=== PATIENT | female | born 1935 | race Caucasian/White ===

== ENCOUNTER → 2018-05-25 | Outpatient (CLI) | payer OTHER ==
[~2018-05-25] MED LIST: ASPIR 8181 MG PO; CIPRO500 MG PO; COLACE100 MG PO; COZAAR 50 MG TA50 M2 PO; FISH OIL 1,001000 M2 PO; FLAGYL500 M1 PO; FLONASE 0.05%50 MCG NASAL; LEVOTHYROXIN0.025 MG PO; MAGOX 400400 MG PO; METFORMIN HCL500 MG PO; NORCO 5-325 TA1 EACH PO; OMEPRAZOLE40 MG PO; PERCOCET PO; POTASSIUM99 M1 PO; PRAVACHOL40 MG PO; REGLAN 5 MG TAB5 MG PO; TRAMADOL 50 MG50 MG PO; VITAMIN D2000 UNIT PO
== END ==
LOC: MRI 11:55
DX: G31.9 Degenerative disease of nervous system, unspecified (principal); I67.82 Cerebral ischemia; G20 Parkinson's disease; R29.6 Repeated falls; R26.89 Other abnormalities of gait and mobility; Z85.9 Personal history of malignant neoplasm, unspecified

== ENCOUNTER 2018-09-27 14:37 | Inpatient (IN) | payer OTHER ==
[~2018-09-27] VITALS: Ht 152.4 cm; Wt 69.4 kg
--- NOTE | ~2018-09-27 | H ---
[facility] [place] [address] HISTORY AND PHYSICAL Name: SANDRA PACHECO Room #: 461-P ADM IN M.R.#: [id number] Admission: 09/27/18 ������������������ Attend Phys: Thad Reyes MD Discharge: ������������������ Date of : 36 Report #: [id number] THIS REPORT FOR: //name// CC: Thad Reyes DATE OF SERVICE: 09/27/2018 CHIEF COMPLAINT: Severe right-sided chest pain with atypical features, multiple risk factors for coronary artery disease. HISTORY OF PRESENT ILLNESS: She was awakened by right-sided chest pain at noon today. The pain was radiating down her right arm, waxing and waning and was worse with deep inspiration. She also reported shortness of breath due to her pain. She took some meir nieves, drank some water, laid down and went back to sleep and the pain woke her up again. After discussing it with her family members, she called the ambulance, which gave her 324 mg of aspirin and brought her to the [facility]. There was nausea and vomiting earlier in the morning associated with caffeinated tea and cola. Evaluation in the Emergency Room was negative, but with her age of 83 and multiple risk factors as well as the severity and persistence of her pain, admission was indicated. PAST MEDICAL HISTORY: Significant for fci type 2 diabetes, obesity, hyperlipidemia, hypertension, GERD along with a hiatal hernia and sinus surgery. She has had history of hypothyroidism, but currently does not need thyroid replacement. She has had kidney stones in the past that she passed. She has a full mouth extraction for bad teeth and now has full dentures. She has had sinus surgery and colon cancer removed in 2002 with hemicolectomy and hysterectomy in 1960 for uterine cancer. Tremors and RLS are possibly Parkinsons disease; neurologist prescribed 0.25mg ropinerole twice a day empericlly and it is very effective. SOCIAL HISTORY: She lives with her sister in her sister's home. They have lived together many years. Their mother lived with them until 2 years ago when she at the age of 89 of a lung cancer. CURRENT MEDICATIONS: Furosemide 40 mg daily on an as needed basis for swelling, omeprazole 40 mg for reflux, tramadol 50 mg on a rare as needed basis, pravastatin 80 mg for high cholesterol, fluticasone nasal spray on a rare p.r.n. basis. Stool softener once every morning, fish oil pills once every morning, metformin 500 mg once daily, magnesium oxide 250 mg at bedtime for leg cramps and potassium gluconate [id number], or an occasional 20 mEq prescription [address] [address] HISTORY AND PHYSICAL Name: PACHECOSANDRA Room #: 461-P [facility] IN M.R.#: [id number] Admission: 09/27/18 ������������������ Attend Phys: Thad Reyes MD Discharge: ������������������ Date of : 36 Report #: [id number] strength potassium for diffuse leg and arm cramps. Vitamin D 2000 units daily, losartan 100 mg daily (she has currently been increased to taking a full pill). Ropinirole 0.25 mg twice daily for restless legs and possible Parkinson's disease. This medication was prescribed by Dr. Sinclair. REVIEW OF SYSTEMS: Generally, she feels well. HEENT are negative. She has had some shortness of breath with flaring of the right arm and chest pain. She has hiatal hernia symptoms and reflux. She has had a tremor and leg and arm cramps that were improved by taking a low dose of ropinirole 0.25 mg twice daily prescribed by Dr. Sinclair of Neurology [facility] at [facility]. She has right chest wall pain. She has left upper abdominal wall pain. She does not have any symptoms. Her legs began swelling several days ago and responded incompletely to elevation. Her left leg is swollen much more than her right and she started taking her furosemide. The left lower calf and ankle are tender. A stool was passed recently with bright red blood, she was constipated and had to strain at stool and she does have a history of hemorrhoids. At times, her constipation is such that she needs to digitally assist her stool to pass. ALLERGIES: AMITRIPTYLINE CAUSES HIVES AND HOT FLASHES, CODEINE CAUSES SEVERE HALLUCINATIONS, PENICILLINS CAUSE HER TO PASS OUT AND SHE IS UNABLE TO BREATHE, SULFONAMIDE ANTIBIOTICS CAUSE HIVES. SOCIAL HISTORY ADDITION: She has stopped smoking cigarettes long time ago. She stopped using alcohol quite a while ago as well. PAST MEDICAL HISTORY: Type 2 diabetes, she has passed kidney stones. PHYSICAL EXAMINATION: GENERAL: Shows an 83-year-old female in mild discomfort at the time of my examination. HEENT: Unremarkable. The oropharynx is mildly dry. NECK: There is no adenopathy, thyromegaly or masses in the neck. There are no carotid bruits present. LUNGS: Clear. CARDIOVASCULAR: The heart tones are normal and regular. ABDOMEN: Obese and mildly diffusely tender centered in the left upper quadrant. Bowel sounds are normal. GENITOURINARY: Deferred. EXTREMITIES: The left lower leg has mild tenderness with +1 swelling around the ankle and midcalf regions. There is perhaps minimal redness, the family and the patient say the redness was present yesterday and the day before, but has resolved. There is no warmth present. There is a tender large popliteal Moreno's cyst present on the left. The right has minimal edema, no tenderness, no erythema and no popliteal cyst. NEUROLOGIC: Screening neurological examination is grossly normal. [facility] [address] [place] [address] HISTORY AND PHYSICAL Name: SANDRA PACHECO Cristo Room #: 461-P ADM IN .R.#: [id number] Admission: 09/27/18 ������������������ Attend Phys: Thad Reyes MD Discharge: ������������������ Date of : 36 Report #: [id number] DIAGNOSTIC DATA: In the Emergency Room, CT scan by pulmonary emboli protocol was negative and showed normal heart size. Numerous subpleural blebs were present low in the lower lung zavala, along with apical scarring. Atherosclerosis of the aorta was noted. A large hiatal hernia was present and was increased in size when compared with 01/18/2016. Multiple osteophytes were present at multiple levels of the thoracic spine. There was fluid in the esophagus, which may represent reflux or gastroparesis. Venous Doppler of the left leg showed normal venous function, no blood clots were present. LABORATORY DATA: Remarkable for an albumin of 2.7, fulfilling criteria for severe malnutrition, kidney function is normal with an EGFR of 60. Troponins are negative. NT-proBNP is normal at 129. Hemoglobin is higher than usual at 11.9, WBC is 9.0 without abnormalities in the differential. ASSESSMENT: 1. Right chest pain with some atypical features and some true angina features. 2. Multiple cardiac risk factors. 3. Painful swelling in the left lower leg without deep vein thrombosis. 4. Chronic pulmonary disease with some lower blebs. 5. A spiculated density in the posterior aspect of left upper lobe measuring 2.9 x 1.9 cm, was incompletely evaluated on 01/04/2016, and not specifically mentioned on the current CT pulmonary embolism protocol. 6. Hyperlipidemia. 7. Type 2 diabetes. 8. Hiatal hernia with gastroesophageal reflux disease and symptoms. 9. Right-sided chest wall pain. 10. Left-sided upper abdominal wall pain. 11. Constipation with bright red blood on the stool. 12. Diffuse cramps of the hands and legs that respond to magnesium, potassium and ropinirole. 13. Hand tremors that responded to ropinirole empirically and the formal full evaluation for Parkinson's disease was reserved for later, suggested by the neurologist, Dr. Sinclair and agreed to by the patient and her family. PLAN: The patient is an 83-year-old female with multiple high risk factors for coronary artery disease. Her presentation is atypical, but it is known that women have more atypical features in their presentation of angina or chest pain. For this reason, she is being admitted and being monitored with serial troponins. Cardiovascular and Medicine consultation will be obtained in the morning. There is an additional history of a colonoscopy that had a perforation as a [facility] [address] [place] [address] HISTORY AND PHYSICAL Name: SHAKIRA PACHECOBobby Lemons Room #: 461-P [facility] IN ..#: [id number] Admission: 09/27/18 ������������������ Attend Phys: Thad Reyes MD Discharge: ������������������ Date of : 36 Report #: [id number] complication, followed by laparoscopic partial colectomy and perforation repair by Dr. Deysi Correia several years ago. ��������������������������������������������� ���������������������������������������� By: ��������������������������������������������� 00 Thad Reyes MD /nt
[2018-09-27 14:40] VITALS: BP 146/76
[2018-09-27 15:15] LABS: ABSOLUTE NEUTROPHILS 5.2 thou/uL (1.4-8.2); BASOPHILS 0.7 % (0.0-2.0); EOSINOPHILS 1.8 % (0.0-3.0); HEMATOCRIT 36.8 % (37.0-47.0); HEMOGLOBIN 11.9 gm/dL (12.0-15.0); LYMPHOCYTES 32.6 % (24.0-44.0); MCH 26.6 pg (26.0-34.0); MCHC 32.5 g/dL (28.0-37.0); MCV 82.1 fL (80.0-100.0); MONOCYTES 6.8 % (1.0-8.0); PLATELET COUNT 272 thou/uL (150-400); POLYS 58.1 % (36.0-66.0); RBC 4.48 mil/uL (4.20-5.00); RDW 15.9 % (10.5-14.5)
[2018-09-27 15:17] LABS: ANION GAP 10 mmol/L (7-16); BUN 18 mg/dL (7-18); CALCIUM 9.4 mg/dL (8.5-10.1); CHLORIDE 105 mmol/L (98-107); CO2 26 mmol/L (21-32); CREATININE 0.9 mg/dL (0.6-1.0); GLUCOSE 127 mg/dL (74-106); POTASSIUM 3.7 mmol/L (3.5-5.1); SODIUM 141 mmol/L (136-145)
[2018-09-27 15:27] LABS: TROPONIN-I <0.06 ng/mL (<0.06)
[2018-09-27 17:35] VITALS: BP 153/69
[2018-09-27] MEDS ORDERED: LASIX 40 MG TAB40 M2 PO (17:45)
[2018-09-27 19:38] VITALS: BP 154/61
[2018-09-27 19:53] VITALS: BP 148/58
[2018-09-28 01:10] VITALS: BP 142/69
[2018-09-28 05:34] LABS: ALBUMIN 2.7 g/dL (3.4-5.0); CALCIUM 8.8 mg/dL (8.5-10.1); CREATININE 0.8 mg/dL (0.6-1.0); POTASSIUM 3.9 mmol/L (3.5-5.1); TOTAL BILIRUBIN 0.3 mg/dL (<0.1-1.0); TOTAL PROTEIN 5.7 g/dL (6.4-8.2)
[2018-09-28 07:05] VITALS: BP 104/43
--- NOTE | 2018-09-28 08:07 | NUR ---
1950 TO FLOOR PER CART FROM ER. ADMISSION PROCESS STARTED AND COMPLETED. SLEPT MOST OF SHIFT. DENIES COMPLAINTS OF PAIN AT PRESENT. ULTRAM GIVEN FOR RIGHT BREAST PAIN IN ARM PIT WITH NOTED RELIEF. NPO PAST MIDNIGHT FOR POSSIBLE AM TEST. SPOKE WITH DR CLEANING X2 FOR ADMIT ORDERS AND UPDATE. NO COMPLAINTS THIS AM. CONTINUE TO ASSES ALLIE.
--- NOTE | 2018-09-28 09:02 | EKG ---
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: DESTINY : 1935 Requested By: Ryan Nixon Order Number: [id number] MD: Julián Kraft Measurements Intervals [place] Rate: 73 P: 54 DC: 174 QRS: -15 QRSD: 87 T: 133 QT: 399 QTc: 440 Interpretive Statements Sinus rhythm Inferior infarct, old Nonspecific ST segment abnormality Compared to ECG 02/11/2016 10:01:27 Inferior Q waves are more prominent Electronically Signed On 09-28-2018 9:02:48 CDT by Julián Kraft [email or web address] ��������������������������������������������� <ELECTRONICALLY SIGNED> ���������������������������������������� By: Julián Kraft MD, [facility] ��������������������������������������������� 09/28/18 0902 [id number] Julián Kraft MD, [facility] /EPI
--- NOTE | 2018-09-28 09:47 | 2DMMODE ---
[facility] [address] [place] [address] 2 D/M-MODE ECHOCARDIOGRAM Name: JUNIORSANDRA J Room #: 461-P [facility] IN ..#: [id number] ������������� Admission: 09/27/18 ������������� Attend Phys: Thad Reyes, Discharge: ��� ������������� ��� Date of : 37 Date of Service: 09/28/18 0947 �� Report #: [id number] �������� ��������������������������������������������[id number] THIS REPORT FOR: //name// APPROVED REPORT Study performed: 09/28/2018 09:07:16 EXAM: Comprehensive 2D, Doppler, and color-flow Echocardiogram Patient Location: Echo lab Room #: 461 Status: routine BSA: 1.67 HR: 70 bpm BP: 142/69 mmHg Rhythm: NSR Other Information Study Quality: Good Indications Dyspnea Chest Pain Hx: HTN, HLP, DM. 2D Dimensions RVDd: 30.83 mm IVSd: 12.10 (7-11mm) LVOT Diam: 17.77 (18-24mm) LVDd: 40.08 mm PWd: 9.96 (7-11mm) LVDs: 24.74 (25-40mm) Aortic Root: 34.56 mm Volumes Left Atrial Volume (Systole) Single Plane 4CH: 36.79 mL Single Plane 2CH: 38.91 mL LA ESV Index: 24.00 mL/m2 Aortic Valve AoV Peak Benjamin.: 1.35 m/s AO Peak Gr.: 7.30 mmHg LVOT Max P.28 mmHg LVOT Max V: 1.03 m/s AUGUSTUS Vmax: 1.90 cm2 Mitral Valve E/A Ratio: 0.8 [facility] [address] [place] [address] 2 D/M-MODE ECHOCARDIOGRAM Name: PACHECOSANDRA Room #: 461-P [facility] IN [facility].#: [id number] ������������� Admission: 09/27/18 ������������� Attend Phys: Thad Reyes, Discharge: ��� ������������� ��� Date of : 37 Date of Service: 09/28/18 0947 �� Report #: [id number] �������� ��������������������������������������������[id number] MV Decel. Time: 215.53 ms MV E Max Benjamin.: 0.72 m/s MV A Benjamin.: 0.86 m/s MV PHT: 62.50 ms IVRT: 83.04 ms Pulmonary Valve PV Peak Benjamin.: 0.76 m/s PV Peak Gr.: 2.30 mmHg Pulmonary Vein P Vein S: 0.59 m/s P Vein A: 0.29 m/s P Vein D: 0.53 m/s P Vein A Dur.: 138.4 msec P Vein S/D Ratio: 1.11 Tricuspid Valve TR Peak Benjamin.: 2.42 m/s RAP Estimate: 5.00 mmHg TR Peak Gr.: 23.47 mmHg PA Pressure: 28.00 mmHg Left Ventricle The left ventricle is normal size. There is normal LV segmental wall motion. Mild septal hypertrophy is present. Left ventricular systolic function is normal. LVEF is 55-60%. Mild diastolic dysfunction is present (impaired relaxation pattern). Right Ventricle The right ventricle is normal size. The right ventricular systolic function is normal. Atria The left atrium size is normal. The right atrium size is normal. Aortic Valve The aortic valve is normal in structure. Trace aortic regurgitation. There is no aortic valvular stenosis. Mitral Valve The mitral valve is normal in structure. Mild mitral regurgitation. Tricuspid Valve The tricuspid valve is normal in structure. Mild tricuspid regurgitation. Estimated PAP is 28mmHg. Pulmonic Valve [facility] [address] [place] [address] 2 D/M-MODE ECHOCARDIOGRAM Name: SANDRA PACHECO Room #: 461-P [facility] IN ..#: [id number] ������������� Admission: 09/27/18 ������������� Attend Phys: Thad Reyes, Discharge: ��� ������������� ��� Date of : 37 Date of Service: 09/28/18 0947 �� Report #: [id number] �������� ��������������������������������������������[id number] The pulmonary valve is normal in structure. There is no pulmonic valvular regurgitation. Great Vessels The aortic root is normal in size. IVC is normal in size and collapses >50% with inspiration. Pericardium There is no pericardial effusion. <Conclusion> The left ventricle is normal size. Left ventricular systolic function is normal. Mild diastolic dysfunction is present (impaired relaxation pattern). The right ventricle is normal size. The left atrium size is normal. The aortic valve is normal in structure. Mild mitral regurgitation. Mild tricuspid regurgitation. Estimated PAP is 28mmHg. ��������������������������������������������� <ELECTRONICALLY SIGNED> ���������������������������������������� By: Arnaldo Ascencio MD ��������������������������������������������� 09/28/18946 6 6 Arnaldo Ascencio MD /INF
--- NOTE | 2018-09-28 12:15 | NUR ---
TOWARDS POC PT A/O X4, VSS, AFEBRILE, DENIES PAIN/ CHEST PAIN. NO NV. PT ON NM STRESS TEST AT THIS MOMENT. WILL CONTINUE TO MONITOR.
--- NOTE | 2018-09-28 13:10 | NUR ---
PT ADMITTED RELATED TO CHEST PAIN AND VOMITING. CM REVIEWED CHART AND SPOKE WITH CARE TEAM. CM MET WITH PT AND LUZ HOLLINGSWORTH AT BEDSIDE THIS DAY. PT IS A &O X4. CM ROLE INTRODUCED. PT INDICATED SHE LIVES IN A HOUSE WITH HER SISTER CATS AND SMALL DOGS WITH 3 STEPS TO ENTER AND 2 INSIDE. 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 PT INDICATED NO DME. PT HAD USED [facility] IN 2015 AND WOULD USE THEM AGAIN UPON DC IF RECOMMENDED. PT HAS STRESS TEST AND ECHO TODAY. PT INDICATED SHE PLANS TO RETURN HOME ONCE MEDICALLY STABLE.CM TO FOLLOW INDICATED WITH DC PLANNING.
[2018-09-28 15:27] VITALS: BP 107/73
[2018-09-28 19:25] VITALS: BP 128/55
[2018-09-28 20:53] VITALS: BP 110/78
[2018-09-29 03:17] VITALS: BP 133/69
--- NOTE | 2018-09-29 06:54 | NUR ---
PATIENT SLEPT PART OF THE SHIFT. NO CHEST PAIN REPORTED DURING THE SHIFT. BILATERAL LE EDEMA IS HAS IMPROVED PER ASSESSMENT AND PATIENENT. PATIENT APPEARED COMFORTABLE. CARDIAC CATH SCHEDULED FOR THIS PM. NO ORDERS RECEIVED AT THE MOMENT. PATIENT IS ALLOWED TO HAVE CLEAR BREAKFAST AND NPO THEREAFTER. PATIENT IS PROGRESSING TOWARDS DC GOALS.
[2018-09-29] MEDS ORDERED: REQUIP 0.25 M0.25 M1 PO (07:34)
[2018-09-29 07:47] VITALS: BP 108/76
[2018-09-29 15:06] VITALS: BP 111/61
[2018-09-29 20:57] VITALS: BP 119/55
--- NOTE | 2018-09-30 02:25 | NUR ---
PT SUPINE 4 FOR 4 HOURS AFTER CATH PT GIVEN TRAMADOL FOR PAIN PT WAS ABLE TO SLEEP MOST OF THE NIGHT NO ISSUES OVERNIGHT.
[2018-09-30 04:52] VITALS: BP 132/58
[2018-09-30 08:24] VITALS: BP 135/58
--- NOTE | 2018-09-30 11:47 | NUR ---
TOWARDS POC PT A/O X4, VSS, AFEBRILE, PAIN MANAGED BY MEDS, HEATING PAD IN ROOM. LATULOSE GIVEN FOR CONSTIPATION, FAMILY AT BEDSIDE. NO CONCERNS VOICED, WILL CONTINUE TO MONITOR.
--- NOTE | 2018-09-30 12:48 | NUR ---
ON-GOING ASSESSMENT: PT IS HAVING ISSUES WITH NAUSEA AND VOMITTING WELL As CONSTIPATION. CM WILL CONTINUE TO FOLLOW TO ASSIST NEEDED.
[2018-09-30] MEDS ORDERED: PROTONIX40 M1 PO (15:56)
[2018-09-30] MEDS ORDERED: ZETIA10 MG PO (15:56)
[2018-09-30] MEDS ORDERED: ASPIR 8181 MG PO (15:56)
[2018-09-30] MEDS ORDERED: ANTIVERT25 MG PO (16:05)
[2018-09-30] MEDS ORDERED: POTASSIUM20 PO (16:05)
[2018-09-30] MEDS ORDERED: ONDANSETRON ODT4 MG PO (16:05)
[2018-09-30 16:22] VITALS: BP 135/58
--- NOTE | 2018-10-05 09:56 | CATHLAB ---
[facility] [address] [place] [address] INVASIVE PROCEDURE REPORT Name: SANDRA PACHECO Room #: 461-P [facility] IN [facility]#: [id number] ������������� Admission: 09/27/18 ������������� Attend Phys: Thad Reyes, Discharge: ��� 09/30/18 ������������� ��� Date of : 37 Date of Service: 10/05/18 0955 �� Report #: [id number] �������� ��������������������������������������������[id number] THIS REPORT FOR: //name// APPROVED REPORT Study performed: 09/29/2018 16:53:41 Patient Details Patient Status: In-Patient Room #: The patient is a 83 year-old female Event Personnel Fredy Solis [employer], José Miguel Sutherland RN, Claudine Vásquez RTR, Clark Dee David Monitor Procedures Performed Left Heart Cath w/or w/o Coronaries [id number] [facility] supervision of conscious sedation Indication Chest pain Procedure Narrative The Right Groin^ was infiltrated with 1% Lidocaine subcutaneous anesthesia. A PINNACLE 4FR Sheath #[id number] sheath was inserted into the RFA^. Coronary angiography was performed using coronary diagnostic catheters. The right coronary system was accessed and visualized with a JR4 catheter. The left coronary system was accessed and visualized with a JL4 catheter. Left ventricular/Aortic Valve gradient assessed via catheter pullback. Hemostasis was obtained with manual pressure following sheath removal without any complications. The patient tolerated the procedure well and there were no complications associated with the procedure. There was no hematoma. Intraoperative Conscious Sedation Sedation start time: 17.19 Case end Time: 17.47 Versed 2 mg Fluoro Time: 1.30 minutes Dose: DAP 2081.90 cGycm2 297 mGy Contrast Type and Amount: Omnipaque 50 ml Coronary Angiography [facility] [address] [place] [address] INVASIVE PROCEDURE REPORT Name: PACHECOSANDRA Room #: 461-P [facility].#: [id number] ������������� Admission: 09/27/18 ������������� Attend Phys: Thad Reyes, Discharge: ��� 09/30/18 ������������� ��� Date of : 37 Date of Service: 10/05/18 0955 �� Report #: [id number] �������� ��������������������������������������������[id number] The patient's coronary anatomy is right dominant. Diagnostic Cath Left Main normal origin and small to moderate caliber vessels giving rise to LAD and LCX vessel free of high grade disease. LAD small to moderate caliber type I vessel with a small 30% proximal eccentric lesion. it then continues in av sulcus giving rise to septal and diagonal branches. free of high grade disease. Diagonal 1 small caliber with proximal 30% lesion otherwise free of significant disease Circumflex small caliber nondominant vessel coarsing posteriorly giving rise to several smaller caliber marginal branches all free of high grade disease Right Coronary moderate to large caliber vessel coarsing posteriorly free of high grade disease. gives rise to PDA then terminanates as a moderate caliber PLVB without high grade lesions R PDA moderate caliber vessel free of significant lesions. Ramus small insignificant caliber vessel with mild ostial lesion Left Ventriculography Left Ventriculography was not performed. Hemodynamics The aortic pressure is 134/64 mmHg with a mean of 90 mmHg. The left ventricular pressure is 141/12 mmHg with a mean of mmHg. The left ventricular end diastolic pressure is 22 mmHg. There was no gradient across the aortic valve upon pullback. Pullback from the left ventricle to the aorta revealed no gradient across the aortic valve. Conclusion 1. CAD MILD LUMINAL IRREGULARITIES 2. NORMAL HEMODYNAMICS WITH PRESERVED LVEDP Recommendations Cardiac Risk Reduction Program Medical Therapy ��������������������������������������������� <ELECTRONICALLY SIGNED> ���������������������������������������� By: Fredy Solis MD ��������������������������������������������� 10/05/18954 4 4 Fredy Solis MD /INF
[2018-10-06] MEDS ORDERED: ASPIR 8181 MG PO (13:56)
[2018-10-06] MEDS ORDERED: ZETIA10 MG PO (13:57)
[2018-10-06] MEDS ORDERED: SYNTHROID25 MC1 PO (13:58)
[2018-10-06] MEDS ORDERED: LOSARTAN POTAS100 MG PO (13:59)
[2018-10-06] MEDS ORDERED: MAGNESIUM OXID250 MG PO (14:00)
[2018-10-06] MEDS ORDERED: PRAVACHOL80 MG PO (14:01)
== END 2018-09-30 16:45 | disposition home or self-care (01) | DRG 391 ==
LOC: ER 14:37 → EROBS 17:34 → 4W 17:34 → ENTRNSPT 09-30 16:35 → 4W 09-30 16:45
PROVIDERS: Emergency Medicine; ADMIT Internal Medicine
DX: K21.9 Gastro-esophageal reflux disease without esophagitis (principal); E43 Unspecified severe protein-calorie malnutrition; I25.10 Atherosclerotic heart disease of native coronary artery without angina pectoris; I80.01 Phlebitis and thrombophlebitis of superficial vessels of right lower extremity; I10 Essential (primary) hypertension; E78.00 Pure hypercholesterolemia, unspecified; E03.9 Hypothyroidism, unspecified; E11.9 Type 2 diabetes mellitus without complications; M71.22 Synovial cyst of popliteal space [Baker], left knee; E66.9 Obesity, unspecified; E78.5 Hyperlipidemia, unspecified; K44.9 Diaphragmatic hernia without obstruction or gangrene; K59.00 Constipation, unspecified; Z66 Do not resuscitate; Z96.611 Presence of right artificial shoulder joint; Z90.710 Acquired absence of both cervix and uterus; Z85.42 Personal history of malignant neoplasm of other parts of uterus; Z98.42 Cataract extraction status, left eye; Z98.41 Cataract extraction status, right eye; Z88.6 Allergy status to analgesic agent; Z88.0 Allergy status to penicillin; Z88.2 Allergy status to sulfonamides; Z88.8 Allergy status to other drugs, medicaments and biological substances; Z87.891 Personal history of nicotine dependence; Z68.29 Body mass index [BMI] 29.0-29.9, adult; Z87.442 Personal history of urinary calculi
CPT/HCPCS: 10045

== ENCOUNTER → 2018-10-07 | Outpatient (CLI) | payer OTHER ==
[~2018-10-07] VITALS: Ht 157.5 cm; Wt 69.9 kg
[~2018-10-07] MED LIST changes: +ANTIVERT25 MG PO; +LASIX 40 MG TAB40 M2 PO; +LOSARTAN POTAS100 MG PO; +MAGNESIUM OXID250 MG PO; +ONDANSETRON ODT4 MG PO; +POTASSIUM20 PO; +PRAVACHOL80 MG PO; +PROTONIX40 M1 PO; +REQUIP 0.25 M0.25 M1 PO; +SYNTHROID25 MC1 PO; +ZETIA10 MG PO
--- NOTE | 2018-10-09 13:04 | P ---
[facility] [place] [address] PROCEDURE REPORT Name: SANDRA PACHECO Room #: REG [facility]#: [id number] Admission: 10/07/18 ������������������ Attend Phys: Eddie Sheridan MD Discharge: ������������������ Date of : 36 Report #: [id number] THIS REPORT FOR: //name// CC: Eddie Reyes MD DATE OF SERVICE: 10/07/2018 OUTPATIENT UPPER ENDOSCOPY REPORT: BRIEF HISTORY: The patient is an 83-year-old woman with recurrent solid food dysphagia. She also has a history of a large hiatus hernia and reflux disease. She also recently had atypical chest pain, was switched from omeprazole to pantoprazole 40 mg twice daily. PREOPERATIVE DIAGNOSES: Atypical chest pain and dysphagia and reflux disease. POSTOPERATIVE DIAGNOSES: 1. Distal esophagitis. 2. Moderately large 5-6 cm hiatus hernia. 3. Polyp, cardia of stomach. 4. Diffuse gastritis. 5. Mild Schatzki ring. MEDICATIONS: Deep sedation with propofol per anesthesia. SPECIMEN: Biopsy of gastritis. ESTIMATED BLOOD LOSS: 3 mL. PROCEDURE: EGD with biopsy and Pressley dilation. FINDINGS: Prior to propofol sedation, procedure of upper endoscopy and dilation was reviewed with the patient as well as potential risks and its complications. She indicates she understands and desires to proceed. DESCRIPTION OF PROCEDURE: With the patient in left lateral decubitus position, the ClientShowi video endoscope was inserted in the cervical esophagus under direct vision without difficulty. Examination of this organ through its entire length revealed normal mucosa in the proximal esophagus. Examination of the distal esophagus revealed it to be tortuous likely from her moderately large hiatus hernia. There were erosions in the distal esophagus consistent with reflux esophagitis to moderate degree. At the squamocolumnar junction, intermittently a Schatzki ring was seen. It had a smooth benign appearance. The scope was advanced into the hernia and it was inspected. The mucosa and hernia was [facility] [address] [place] [address] PROCEDURE REPORT Name: JUNIORSANDRA Room #: [facility].#: [id number] Admission: 10/07/18 ������������������ Attend Phys: Eddie Sheridan MD Discharge: ������������������ Date of : 36 Report #: [id number] intact. The hernia measured 5-6 cm in greatest length. I was able to retroflex the scope in the hernia and just at the level of the cardia just distal to the gastroesophageal junction; a 8-9 mm red, somewhat friable polypoid lesion was seen. It had smooth and benign appearance. It is not clear whether this is neoplasm, inflammatory polyp or it could even be thickened folds inflamed. Multiple biopsies were obtained. The scope was advanced into the distal stomach, was examined on end view as well as retroflexed views. There was a pattern of diffuse erythematous gastritis. No ulcers or erosions were seen. The pylorus was unremarkable. Duodenal bulb was unremarkable. Duodenal sweep was unremarkable. At that point, the scope was slowly withdrawn and careful circumferential views confirmed the above findings. The patient tolerated the procedure well. Subsequently, she was dilated with passage of 52-Egyptian Pressley dilator. There was no resistance. CONDITION OF THE PATIENT UPON DISCHARGE: Following procedure, the patient drowsy, aroused, conversant and will be discharged home when fully ambulatory. INSTRUCTIONS TO THE PATIENT AND FAMILY AT THE TIME OF DISCHARGE: I would agree with use of twice daily pantoprazole, especially since there is evidence of esophagitis and she had recent bout of chest pain, which may be related to reflux disease. I would be happy to see her in followup in the office in about 8-12 weeks to see her response. If she continues with symptoms in spite of medical therapy, repair of the hiatus hernia may be a consideration. She did have a Schatzki ring as noted above. She was dilated once again. She is to return for dilation based on symptoms of recurrent dysphagia. In addition, suggest antireflux measures including eating smaller meals, avoiding eating meals when lying down and elevation of head of her bed. She will follow up with Dr. Reyes and we will follow up on biopsy as well. ��������������������������������������������� <ELECTRONICALLY SIGNED> ���������������������������������������� By: Eddie Sheridan MD ��������������������������������������������� 10/09/18 1304 1056 0304 Eddie Sheridan MD /nt
--- NOTE | 2018-10-11 13:12 | PATH ---
[facility] [place] [address] PATHOLOGY RPT PROCEDURE Name: SANDRA JENNINGS Cristo Room #: REG [facility] Miranda.#: [id number] ������������������ Admission: 10/07/18 ������������������ Date of : 36 Discharge: Report #: [id number] Path Case #: [id number] [facility] Accession Number: [id number] . 01 Material submitted: . PART A: BX GASTRITIS R/O H PYLORI PART B: BX POLYP AT CARDIOSTOMACH . 01 Clinical history: . Pre-OP DX: GERD Post-OP DX: Gastritis, Schatzki's ring, large hiatal hernia, polyp at cardio stomach . 02 Diagnosis: A. Gastric mucosa, gastritis rule out H. pylori, endoscopic biopsy: - Mild reactive gastropathy. - Negative for intestinal metaplasia or atrophy. - Negative for Helicobacter pylori (properly controlled immunohistochemical stain performed). . B. Polyp, at cardiostomach, endoscopic biopsy: - Compatible with a hyperplastic/inflammatory polyp. - Negative for dysplasia or malignancy. (IUV/db; 10/08/2018) LBQ/10/08/2018 . 02 Electronically signed: . Lisa Agustin MD, Pathologist NPI- [id number] . 01 Gross description: . A. Received in formalin labeled "Sandra Jennings BX gastritis, rule out H. pylori," are 4 segments of jansen soft tissue measuring 0.9 x 0.8 x 0.2 cm in aggregate dimensions and ranging from 0.2 to 0.6 cm in maximum dimension. The specimen is submitted entirely in cassette A1. . B. Received in formalin labeled "Sandra Jennings BX polyp at cardio stomach," are 4 segments of jansen soft tissue measuring 1.2 x 0.6 x 0.2 cm in aggregate dimensions and ranging from 0.4 to 0.5 cm in maximum dimension. The specimen is submitted entirely in cassette B1. (TSD; 10/07/2018) TOB/TOB . 02 Pathologist provided ICD-10: K31.9, K31.7 . 02 [place] [address] PATHOLOGY RPT PROCEDURE Name: SANDRA JENNINGS Room #: REG [facility]#: [id number] ������������������ Admission: 10/07/18 ������������������ Date of : 36 Discharge: Report #: [id number] Path Case #: [id number] Specimen Comment: A courtesy copy of this report has been sent to Specimen Comment: [phone], . Specimen Comment: Report sent to / DR CLEANING Performed at: [address], [place] [id number] MD Supa Ibrahim MD Phone: [phone] Performed at: [address] [id number] MD Lisa Agustin MD Phone: [phone]
== END | disposition home or self-care (01) ==
LOC: GI 08:31
DX: K21.9 Gastro-esophageal reflux disease without esophagitis (principal); K44.9 Diaphragmatic hernia without obstruction or gangrene; Z79.899 Other long term (current) drug therapy; K31.7 Polyp of stomach and duodenum; K22.2 Esophageal obstruction; K29.70 Gastritis, unspecified, without bleeding; K56.2 Volvulus; E78.00 Pure hypercholesterolemia, unspecified; I10 Essential (primary) hypertension; E11.9 Type 2 diabetes mellitus without complications; E03.9 Hypothyroidism, unspecified; Z98.890 Other specified postprocedural states
CPT/HCPCS: 62110; 62900

== ENCOUNTER → 2018-10-14 | Outpatient (CLI) | payer OTHER | LOC: CAT 12:26 | DX: K80.20 Calculus of gallbladder without cholecystitis without obstruction (principal); K44.9 Diaphragmatic hernia without obstruction or gangrene; G89.29 Other chronic pain; K59.00 Constipation, unspecified ==

== ENCOUNTER → 2018-11-29 | Outpatient (CLI) | payer OTHER ==
[~2018-11-29] VITALS: Ht 154.9 cm; Wt 68.0 kg
[~2018-11-29] MED LIST changes: +ASTEPRO205.5 MCG/ NASAL; +KLOR-CON 1010 MEQ PO
--- NOTE | 2018-11-30 13:59 | P ---
[facility] [place] [address] PROCEDURE REPORT Name: SANDRA PACHECO Room #: REG [facility]#: [id number] Admission: 11/29/18 ������������������ Attend Phys: Eddie Sheridan MD Discharge: ������������������ Date of : 36 Report #: [id number] THIS REPORT FOR: //name// CC: Eddie Reyes MD DATE OF SERVICE: 11/29/2018 BRIEF HISTORY: The patient is an 83-year-old woman with history of rectal cancer treated in [place] 15-20 years ago. Those records are not available. She also has a history of multiple colon polyps and a perforation at the time of colonoscopy in 2014, which was surgically repaired. She presents due to increasing difficulties with constipation. PREOPERATIVE DIAGNOSIS: High risk screening colonoscopy. POSTOPERATIVE DIAGNOSES: 1. Multiple colon polyps. 2. Small internal hemorrhoids. MEDICATIONS: Deep sedation with propofol per Anesthesia. SPECIMENS: 1. Polyp from cecum. 2. Polyp, ascending colon. 3. Polyp, hepatic flexure. 4. Polyp at 60 cm. ESTIMATED BLOOD LOSS: 3 mL. PROCEDURE: Colonoscopy to cecum and terminal ileum with snare polypectomy. DESCRIPTION OF PROCEDURE: With the patient in left lateral decubitus position, digital examination was completed, which revealed no abnormalities. Subsequently, the Olympus video colonoscope was introduced in the rectum, advanced under direct vision to the cecum. Done with minimal difficulty. The cecum was identified by the ileocecal valve and appendiceal orifice. I was able to visualize the distal segment of the terminal ileum and the villous pattern was seen. At that point, scope was slowly withdrawn and careful circumferential views were obtained. Upon slow withdrawal of the scope, the prep was good. The mucosa was within normal limits, normal vascular pattern, normal light reflex. As we withdrew the scope, she was noted to have about a 4 mm sessile polyp in the cecum, removed by cold snare polypectomy. In the proximal ascending colon, an oblong 6-7 mm sessile polyp was seen and removed by cold snare polypectomy and recovered. At the hepatic flexure, a 4-5 mm sessile polyp was seen, removed [address] [address] PROCEDURE REPORT Name: ASNDRA PACHECO TERESA Room #: REG [facility] Ruth.#: [id number] Admission: 11/29/18 ������������������ Attend Phys: Eddie Sheridan MD Discharge: ������������������ Date of : 36 Report #: [id number] by cold snare polypectomy. The scope was further withdrawn and no additional abnormalities were noted until about 60 cm of the descending colon another 4 mm polyp was seen and removed by cold snare polypectomy and recovered. Upon further withdrawal of the scope, no additional lesions were seen. The rectosigmoid anastomosis was identified. It was noted to be unremarkable. In view of her worsening constipation, no strictures were seen. Examination of the rectum revealed normal mucosa. Upon retroflexion, small hemorrhoids were seen. Scope was withdrawn. The patient tolerated the procedure well. CONDITION OF THE PATIENT UPON DISCHARGE: Following the procedure, the patient drowsy, aroused, conversant and will be discharged to home when fully ambulatory. INSTRUCTIONS TO THE PATIENT AND FAMILY AT THE TIME OF DISCHARGE: We will follow up on the path of the polyps. In view of her history, I would suggest return in 3 years for a colonoscopy as long as her health is good. With regard to her constipation, she has been using a stool softener. I would suggest high fiber diet. Also, she may use MiraLax once or twice daily as needed for management of her constipation. If she does not have good control, she can return to the office for followup recommendations and possibly including the addition of Linzess. She will return to the care of Dr. Reyes, return to see me as needed. Last total colonoscopy was about 10 years ago. Withdrawal time from the cecum was 13 minutes 13 seconds. ��������������������������������������������� <ELECTRONICALLY SIGNED> ���������������������������������������� By: Eddie Sheridan MD ��������������������������������������������� 11/30/18 1359 0934 1226 Eddie Sheridan MD /nt
--- NOTE | 2018-11-30 17:06 | PATH ---
[facility] [place] [address] [place] [address] PATHOLOGY RPT PROCEDURE Name: SANDRA JENNINGS Room #: REG [facility] M.R.#: [id number] ������������������ Admission: 11/29/18 ������������������ Date of : 36 Discharge: Report #: [id number] Path Case #: [id number] [facility] Accession Number: [id number] . 01 Material submitted: . PART A: cecum - POLYP AT CECUM PART B: colon - POLYP AT PROXIMAL ASCENDING COLON. Modifiers: proximal, ascending PART C: hepatic flexure - POLYP AT HEPATIC FLEXURE PART D: colon - POLYP AT 60 CM. Modifiers: 60 CM . 01 Clinical history: . Preop DX: Constipation, hx colon cancer Postop DX: Colon polyps . 02 Diagnosis: A. Polyp, at cecum, endoscopic biopsy: - Compatible with an inflammatory polyp associated with hyperplastic changes. - Negative for dysplasia. . B. Polyp, at proximal ascending colon, endoscopic biopsy: - Multiple fragments of a tubular adenoma. - Negative for high-grade dysplasia. . C. Polyp, at hepatic flexure, endoscopic biopsy: - Tubular adenoma. - Negative for high-grade dysplasia. . D. Polyp, at 60 cm, endoscopic biopsy: - Tubular adenoma. - Negative for high-grade dysplasia. (IUV:colleen; 11/30/2018) QMS/11/30/2018 . 02 Electronically signed: . Lisa Agustin MD, Pathologist NPI- [id number] . 01 Gross description: . A. Received in formalin labeled "Sandra Jennings, polyp at cecum," is a segment of yellow-jansen soft tissue measuring 0.9 x 0.5 x 0.3 cm in greatest dimensions. The surgical margin is inked, and the specimen is bisected and submitted entirely in cassette A1. . B. Received in formalin labeled "Sandra Jennings, polyp at proximal ascending colon," is a segment of yellow-jansen soft tissue measuring 0.[address] [address] PATHOLOGY RPT PROCEDURE Name: SANDRA JENNINGS [facility] [id number] ������������������ Admission: 11/29/18 ������������������ Date of : 36 Discharge: Report #: [id number] Path Case #: [id number] 0.5 x 0.3 cm in greatest dimensions. The surgical margin is inked, and the specimen is bisected and submitted entirely in cassette B1. . C. Received in formalin labeled "Evelina Jenningsa, polyp at hepatic flexure," are two segments of yellow-jansen soft tissue measuring 0.4 x 0.3 x 0.2 cm each in greatest dimensions. The specimen is submitted entirely in cassette C1. . D. Received in formalin labeled "Dick Sandra, polyp at 60 cm," is a segment of red-jansen soft tissue measuring 0.8 x 0.3 x 0.2 cm in greatest dimensions. The specimen is submitted entirely in cassette D1. ([facility]; 11/29/2018) XDC/XDC . 02 Pathologist provided ICD-10: K63.5, D12.2, D12.3, D12.6 . 02 CPT . 915170, 090672, 332612, 341916 Specimen Comment: A courtesy copy of this report has been sent to Specimen Comment: [phone], . Specimen Comment: Report sent to / DR CLEANING Performed at: [address], [place] [id number] MD Supa Ibrahim MD Phone: [phone] Performed at: [address] [id number] MD Lisa Agustin MD Phone: [phone]
== END | disposition home or self-care (01) ==
LOC: GI 07:32
DX: D12.3 Benign neoplasm of transverse colon (principal); D12.2 Benign neoplasm of ascending colon; K63.5 Polyp of colon; D12.4 Benign neoplasm of descending colon; K64.8 Other hemorrhoids; I10 Essential (primary) hypertension; I25.10 Atherosclerotic heart disease of native coronary artery without angina pectoris; E78.00 Pure hypercholesterolemia, unspecified; E11.9 Type 2 diabetes mellitus without complications; K21.9 Gastro-esophageal reflux disease without esophagitis; E03.9 Hypothyroidism, unspecified; Z87.891 Personal history of nicotine dependence; Z87.442 Personal history of urinary calculi; Z85.42 Personal history of malignant neoplasm of other parts of uterus; Z90.710 Acquired absence of both cervix and uterus; Z86.010 Personal history of colon polyps; Z85.038 Personal history of other malignant neoplasm of large intestine; Z98.41 Cataract extraction status, right eye; Z98.42 Cataract extraction status, left eye; Z98.890 Other specified postprocedural states; Z79.899 Other long term (current) drug therapy; Z88.2 Allergy status to sulfonamides; Z88.0 Allergy status to penicillin; Z88.6 Allergy status to analgesic agent; Z88.8 Allergy status to other drugs, medicaments and biological substances; Z79.82 Long term (current) use of aspirin
CPT/HCPCS: 62110; 62900

== ENCOUNTER → 2019-02-22 | Outpatient (CLI) | payer OTHER | LOC: RAD 10:51 | DX: M18.12 Unilateral primary osteoarthritis of first carpometacarpal joint, left hand (principal); M19.042 Primary osteoarthritis, left hand; W19.XXXA Unspecified fall, initial encounter; Y93.89 Activity, other specified; Y92.89 Other specified places as the place of occurrence of the external cause; Y99.8 Other external cause status ==

== ENCOUNTER → 2019-10-04 | Outpatient (CLI) | payer OTHER | LOC: RAD 11:35 | DX: Z12.31 Encounter for screening mammogram for malignant neoplasm of breast (principal) ==

== ENCOUNTER 2020-03-07 10:05 | Emergency (ER) | payer OTHER ==
[~2020-03-07] VITALS: Ht 154.9 cm; Wt 67.1 kg
[2020-03-07 10:46] LABS: ABSOLUTE NEUTROPHILS 4.5 thou/uL (1.4-8.2); BASOPHILS 0.6 % (0.0-2.0); HEMATOCRIT 37.6 % (37.0-47.0); HEMOGLOBIN 12.4 gm/dL (12.0-15.0); LYMPHOCYTES 19.2 % (24.0-44.0); MCH 29.8 pg (26.0-34.0); MCHC 32.9 g/dL (28.0-37.0); MCV 90.8 fL (80.0-100.0); MONOCYTES 11.7 % (1.0-8.0); PLATELET COUNT 223 thou/uL (150-400); POLYS 62.5 % (36.0-66.0); RBC 4.14 mil/uL (4.20-5.00); WBC 7.2 thou/uL (4.0-11.0)
[2020-03-07 10:51] LABS: URINE BILIRUBIN NEGATIVE (Negative); URINE BLOOD NEGATIVE (Negative); URINE CLARITY CLEAR; URINE COLOR YELLOW; URINE GLUCOSE-RANDOM* NEGATIVE (Negative); URINE KETONES NEGATIVE (Negative); URINE LEUKOCYTES-REFLEX TRACE (Negative); URINE NITRITE-REFLEX NEGATIVE (Negative); URINE PROTEIN (DIPSTICK) NEGATIVE (Negative); URINE UROBILINOGEN 0.2 E.U./dl (0.2-1.0)
[2020-03-07 11:03] LABS: ANION GAP 8 mmol/L (7-16); BUN 33 mg/dL (7-18); CALCIUM 9.5 mg/dL (8.5-10.1); CHLORIDE 104 mmol/L (98-107); CO2 28 mmol/L (21-32); CREATININE 1.2 mg/dL (0.6-1.0); GLUCOSE 112 mg/dL (74-106); POTASSIUM 3.8 mmol/L (3.5-5.1); SODIUM 140 mmol/L (136-145)
[2020-03-07 11:09] LABS: MAGNESIUM 2.1 mg/dL (1.8-2.4); TROPONIN-I <0.06 ng/mL (<0.06)
[2020-03-07 15:27] VITALS: BP 110/52
--- NOTE | 2020-03-08 09:07 | EKG ---
[facility] [place] [address] [address] ELECTROCARDIOGRAM REPORT Name: SANDRA PACHECO [facility] [id number] Admission: 03/07/20 Attend Phys: Discharge: 03/07/20 Date of : 36 Report #: [id number] THIS REPORT FOR: cc: Thad Reyes MD, Stanley P. MD Couchonnal, Luis F. MD ~ THIS REPORT FOR: //name// [facility] ED Test Date: 2020-03-07 Test Time: 10:25:19 Pat Name: SANDRA PACHECO Department: Room: Gender: Day Care Supervisor: JULIO : 1935 Requested By: Angel Lozada Order Number: [id number] : Kip Gimenez Measurements Intervals [place] Rate: 72 P: 58 ME: 186 QRS: -2 QRSD: 91 T: 52 QT: 407 QTc: 446 Interpretive Statements Sinus rhythm Compared to ECG 09/27/2018 14:42:21 Myocardial infarct finding no longer present ST (T wave) deviation no longer present Electronically Signed On 03-08-2020 9:07:30 CDT by Kip Gimenez [email or web address] <ELECTRONICALLY SIGNED> By: Kip Gimenez MD 03/08/20 0907 1025 1025 Kip Gimenez MD /EPI
--- NOTE | 2020-03-08 09:09 | EKG ---
[facility] [place] [address] [place] [address] ELECTROCARDIOGRAM REPORT Name: SANDRA PACHECO [facility] [id number] Admission: 03/07/20 Attend Phys: Discharge: 03/07/20 Date of : 36 Report #: [id number] THIS REPORT FOR: cc: Thad Reyes MD, Stanley P. MD Couchonnal, Luis F. MD ~ THIS REPORT FOR: //name// [facility] ED Test Date: 2020-03-07 Test Time: 12:39:15 Pat Name: SANDRA PACHECO Department: Room: Gender: Private Inquiry Agent: [facility] : 1935 Requested By: Angel Lozada Order Number: [id number] MD: Kip Gimenez Measurements Intervals [place] Rate: 65 P: 51 WI: 189 QRS: -8 QRSD: 87 T: 39 QT: 427 QTc: 444 Interpretive Statements Sinus rhythm Compared to ECG 03/07/2020 10:25:19 No significant changes Electronically Signed On 03-08-2020 9:08:50 CDT by Kip Gimenez [email or web address] <ELECTRONICALLY SIGNED> By: Kip Gimenez MD 03/08/20 0908 1239 1239 Kip Gimenez MD /EPI
== END 2020-03-07 15:28 | disposition home or self-care (01) ==
LOC: ER 10:05
PROVIDERS: Emergency Medicine
DX: M54.6 Pain in thoracic spine (principal); R11.0 Nausea; M25.511 Pain in right shoulder; M25.512 Pain in left shoulder; I10 Essential (primary) hypertension; E78.5 Hyperlipidemia, unspecified; E03.9 Hypothyroidism, unspecified; K21.9 Gastro-esophageal reflux disease without esophagitis; Z79.82 Long term (current) use of aspirin; Z79.899 Other long term (current) drug therapy; Z88.0 Allergy status to penicillin; Z88.2 Allergy status to sulfonamides; Z88.5 Allergy status to narcotic agent; Z88.8 Allergy status to other drugs, medicaments and biological substances; Z87.891 Personal history of nicotine dependence

== ENCOUNTER → 2021-03-13 | Outpatient (CLI) | payer OTHER | LOC: SJCVCIMAG 09:04 | PROVIDERS: ATTEND Nuclear Medicine Nuclear Cardiology | DX: I73.9 Peripheral vascular disease, unspecified (principal); M79.605 Pain in left leg; M79.604 Pain in right leg; I87.8 Other specified disorders of veins ==

== ENCOUNTER 2021-07-05 15:28 | Inpatient (IN) | payer OTHER ==
[~2021-07-05] VITALS: Ht 152.4 cm; Wt 68.0 kg
[2021-07-05 15:55] VITALS: BP 79/40
[2021-07-05 17:30] LABS: ABSOLUTE NEUTROPHILS 2.5 thou/uL (1.4-8.2); BASOPHILS 0.9 % (0.0-2.0); EOSINOPHILS 0.1 % (0.0-3.0); HEMATOCRIT 37.6 % (37.0-47.0); HEMOGLOBIN 11.9 gm/dL (12.0-15.0); LYMPHOCYTES 21.8 % (24.0-44.0); MCH 28.4 pg (26.0-34.0); MCHC 31.8 g/dL (28.0-37.0); MCV 89.5 fL (80.0-100.0); MONOCYTES 10.9 % (1.0-8.0); PLATELET COUNT 175 thou/uL (150-400); POLYS 66.3 % (36.0-66.0); RDW 16.1 % (10.5-14.5); WBC 3.7 thou/uL (4.0-11.0)
[2021-07-05 17:38] LABS: CREATININE 1.1 mg/dL (0.6-1.0); POTASSIUM 4.9 mmol/L (3.5-5.1)
[2021-07-05 17:53] LABS: TOTAL BILIRUBIN 0.3 mg/dL (0.2-1.0); TOTAL PROTEIN 6.7 g/dL (6.4-8.2)
[2021-07-05 19:29] VITALS: BP 92/53
[2021-07-05 19:46] VITALS: BP 137/54
[2021-07-05 23:59] VITALS: BP 136/51
--- NOTE | 2021-07-06 00:07 | NUR ---
ADMIT PT ADMITTED TO ROOM 351 FROM ED WITH COVID, N/V/D. A/O X4 UP WITH SBA TO BSC. ADMISSION QUESTIONAIRE AND ASSESSMENT COMPLETED. PT ORIENTED TO ROOM CALL LIGHT SYSTEM AND POC. R/V UNDERSTANDING. TELEMETRY IN PLACE READING SR WITH RATES IN THE 70'S. LUNGS DIMINISHED AND PT ON ROOM AIR. REMDESIVIR INFUSING ORDERED IN TO LAC. CONTINUE POC.
--- NOTE | 2021-07-06 00:22 | NUR ---
TOOK OVER CARE. PT RESTING IN BED. LUNGS DIMINISHED. DUSKY SKIN TONE. IVF INTACT. PT CALLS FOR ASSIST. BED ALARM ON. PROVIDER CONTACTED RE NAUSEA AND EMESIS AFTER PT RECEIVED VIT C IN ED. NOTED PT HAS ALLERGY TO CITRUS DERIVITIVES AND PROVIDER NOTIFIED.
[2021-07-06 05:52] VITALS: BP 141/62
[2021-07-06 05:58] LABS: ALBUMIN 2.6 g/dL (3.4-5.0); CALCIUM 8.3 mg/dL (8.5-10.1); CREATININE 0.9 mg/dL (0.6-1.0); POTASSIUM 4.1 mmol/L (3.5-5.1); TOTAL BILIRUBIN 0.1 mg/dL (0.2-1.0); TOTAL PROTEIN 6.1 g/dL (6.4-8.2)
--- NOTE | 2021-07-06 06:18 | NUR ---
PT REPORTED IV BURNING AND ARM TENDER. SITE NOT RED OR SWOLLEN. IVF STOPPED. PT REPORTED BURNING WENT AWAY BUT ARM TENDER. ATTEMPT TO RESTART IV NOT SUCCESSFUL. WILL HAVE DAY SHIFT ATTEMPT RESTART. PTS TEMP ELEVATED, PRN PROVIDED.
[2021-07-06 07:23] VITALS: BP 108/43
[2021-07-06 11:25] VITALS: BP 106/42
[2021-07-06 15:24] VITALS: BP 132/57
--- NOTE | 2021-07-06 16:39 | NUR ---
RN ASSUMED PT'S CARE AT 0700AM, PT IS A&OX4, PT IS ON ROOM AIR , PT'S O2SAT AND VS ARE STABLE, PT IS CONTINUING IV ABX AND TREAT COVID MEDICATIONS, PT'S WEAKNESS AND N/V HAVE IMPROVED, PT GETS UP TO BSC WITH ASSIST, PT DENIES PAIN AND SOB BY THIS TIME.
[2021-07-06 19:12] VITALS: BP 133/53
--- NOTE | 2021-07-06 22:14 | NUR ---
PT WATCHING TV IN BED. PT REPORTED CONSTIPATION AND FEELING LIKE BM PUSHING ON HER BOOBS. PT STATED AT HOME SHE USUALLY WALKS AROUND HER AREA WHICH HELPS WITH RELIEF. PT STATED SHE HAS TAKEN LACTULOSE IN THE PAST AND IT WORKS WELL, ASKED FOR PROVIDER TO BE CALLED AND ASKED FOR MEDICATION. NEW ORDER RECEIVED. LUNGS DIMINISHED, DUSKY SKIN TONE. PT TALKED ABOUT THE GIFTS SHE RECEIVED TODAY, BLUNTED AFFECT.
[2021-07-07 04:51] LABS: ALBUMIN 2.6 g/dL (3.4-5.0); ANION GAP 10 mmol/L (7-16); BUN 20 mg/dL (7-18); CALCIUM 8.5 mg/dL (8.5-10.1); CHLORIDE 112 mmol/L (98-107); CO2 26 mmol/L (21-32); CREATININE 0.8 mg/dL (0.6-1.0); GLUCOSE 59 mg/dL (74-106); POTASSIUM 4.1 mmol/L (3.5-5.1); SGOT 33 U/L (15-37); SGPT 27 U/L (30-65); SODIUM 148 mmol/L (136-145); TOTAL BILIRUBIN < 0.1 mg/dL (0.2-1.0); TOTAL PROTEIN 5.5 g/dL (6.4-8.2)
[2021-07-07 07:18] VITALS: BP 126/53
[2021-07-07 11:24] VITALS: BP 129/59
[2021-07-07] MEDS ORDERED: ALLOPURINOL 10100 M3 PO (12:49)
[2021-07-07] MEDS ORDERED: CARBIDOPA-LEVO1 EA10 PO (12:50)
[2021-07-07] MEDS ORDERED: CYANOCOBAL1000 MCG/1 IM (13:04)
[2021-07-07 15:16] VITALS: BP 146/64
--- NOTE | 2021-07-07 18:16 | NUR ---
RN ASSUMED PT'S CARE AT 0700AM, PT IS A&OX4, PT IS ON ROOM AIR , PT'S VS ARE STABLE AT DAY SHIFT, PT IS CONTINUING IV ABX AND TREAT COVID MEDICATIONS, PT DENIES PAIN AND SOB BY THIS TIME, PT CAN GET UP TO BSC WITHOUT ASSIST AT MOST OF TIME.
[2021-07-07 19:37] VITALS: BP 129/59
[2021-07-08 04:38] VITALS: BP 141/58
[2021-07-08 06:54] LABS: ALBUMIN 2.6 g/dL (3.4-5.0); CALCIUM 8.8 mg/dL (8.5-10.1); CREATININE 0.8 mg/dL (0.6-1.0); POTASSIUM 3.9 mmol/L (3.5-5.1); TOTAL BILIRUBIN 0.1 mg/dL (0.2-1.0); TOTAL PROTEIN 5.8 g/dL (6.4-8.2)
[2021-07-08 08:06] VITALS: BP 138/64
[2021-07-08 11:48] VITALS: BP 122/59
[2021-07-08] MEDS ORDERED: PREDNISONE 10 M10 MG PO (15:02)
--- NOTE | 2021-07-08 15:44 | NUR ---
INITIAL ASSESSMENT/DISCHARGE NOTE: JOANNE reviewed chart and spoke with nursing and attending physician. Pt was admitted from home due to COVID. Pt is afebrile and on room air. Pt is medically stable for discharge home today. Therapy evaluated and cleared pt for discharge. JOANNE spoke with pt via phone. Introduced role of SW. Pt is alert/orientated x 4. Pt reports she lives at home with her sister, who is currently hospitalized for COVID. Prior to admission, pt was independent with ADLs. No use of DME. Pt's PCP is Dr. Thad Reyes. Pt denies having any discharge needs. Pt's niece, Trudy, will provide transportation home around 1630. JOANNE spoke with Trudy via phone to confirm. JOANNE updated nursing with discharge time. No additional SW needs identified at this time, but is available to assist should needs arise.
[2021-07-08 16:22] VITALS: BP 122/59
--- NOTE | 2021-07-08 16:24 | NUR ---
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
--- NOTE | 2021-07-08 17:09 | NUR ---
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
== END 2021-07-08 17:14 | disposition home or self-care (01) | DRG 177 ==
LOC: ER 15:28 → 3W 19:23 → EROBS 19:23 → 3W 19:37
PROVIDERS: Emergency Medicine; ADMIT Hospitalist; ATTEND Hospitalist
PROC: XW033E5 Introduction of Remdesivir Anti-infective into Peripheral Vein, Percutaneous Approach, New Technology Group 5 (ICD-10-PCS; principal; 2021-07-05)
DX: U07.1 COVID-19 (principal); J96.01 Acute respiratory failure with hypoxia; E11.9 Type 2 diabetes mellitus without complications; I10 Essential (primary) hypertension; K21.9 Gastro-esophageal reflux disease without esophagitis; E78.5 Hyperlipidemia, unspecified; Z96.611 Presence of right artificial shoulder joint; E03.9 Hypothyroidism, unspecified; Z98.42 Cataract extraction status, left eye; Z98.41 Cataract extraction status, right eye; Z85.038 Personal history of other malignant neoplasm of large intestine; Z90.710 Acquired absence of both cervix and uterus; Z85.42 Personal history of malignant neoplasm of other parts of uterus; Z87.442 Personal history of urinary calculi; Z88.6 Allergy status to analgesic agent; Z88.0 Allergy status to penicillin; Z88.8 Allergy status to other drugs, medicaments and biological substances; Z87.891 Personal history of nicotine dependence; Z83.6 Family history of other diseases of the respiratory system; Z79.899 Other long term (current) drug therapy
CPT/HCPCS: 10879